=== PATIENT | female | born 1965 | race American Indian/Alaskan Native ===

== ENCOUNTER 2019-09-29 17:04 | Emergency (ER) | payer BC ==
--- NOTE | 2019-09-29 18:08 | Emergency Department Report ---
Blank Doc - Documentation Documentation: 53-year-old female that presents with tachycardia, fever, and cough with SOB. This initial assessment/diagnostic orders/clinical plan/treatment(s) is/are subject to change based on patient's health status, clinical progression and re- assessment by fellow clinical providers in the ED. Further treatment and workup at subsequent clinical providers discretion. Patient/guardians urged not to elope from the ED as their condition may be serious if not clinically assessed and managed. Initial orders include: 1- Patient sent to [facility] for further evaluation and treatment 2- CXR
--- NOTE | 2019-09-29 18:32 | XRay Report ---
CHEST PA AND LATERAL VIEWS INDICATION: cough. COMPARISON: None FINDINGS: Support devices: None Heart: Normal Lungs/Pleura: Minimal bibasilar parenchymal disease, probably atelectasis. No convincing evidence of acute disease. No pleural fluid. IMPRESSION: 1. No acute abnormality. Signer Name: Jeison Quiñonez MD Signed: 09/29/2019 6:28 PM Workstation Name: [id number]
[2019-09-29 20:54] VITALS: BP 140/77
[2019-09-29] MEDS ORDERED: ACETAMINOPHEN 500 MG TAB ONE (20:56)
[2019-09-29] MEDS ORDERED: ACETAMINOPHEN 500 MG TAB PO ONE (20:56)
--- NOTE | 2019-09-29 21:01 | Emergency Department Report ---
- General Chief Complaint: Upper Respiratory Infection Stated Complaint: SOB Time Seen by Provider: 09/29/19 18:07 Source: patient Mode of arrival: Ambulatory Limitations: No Limitations - History of Present Illness Initial Comments: 33-year-old female resents emergency department planing a few day history of nasal congestion and rhinitis with associated cough and shortness of breath but no fever, hemoptysis no hematemesis no hematochezia no palpitations no chest pain no lower extremity swelling but thinks he may have had a few wheezes here there. MD Complaint: cough, rhinorrhea, nasal congestion -: days(s) (2) Associated Symptoms: rhinorrhea. denies: abdominal pain, nausea, vomiting, right sweats, weight loss, hoarseness - Related Data Previous Rx's Medication Instructions Recorded Last Taken Type Albuterol INH(or & Nicu Only) 1 puff IH QID PRN #8.5 gram 09/29/19 Unknown Rx [ProAir HFA Inhaler] Benzonatate [Tessalon Perles] 100 mg PO Q8HR #20 capsule 09/29/19 Unknown Rx Fluticasone [Flonase] 1 spray NS QDAY #1 bottle 09/29/19 Unknown Rx Allergies Allergy/AdvReac Type Severity Reaction Status Date / Time No Known Allergies Allergy Unverified 09/29/19 17:07 ED Review of Systems ROS: Stated complaint: SOB Other details as noted in HPI Comment: All other systems reviewed and negative ED Past Medical Hx - Past Medical History Previous Medical History?: Yes Hx Hypertension: Yes - Surgical History Past Surgical History?: No - Social History Smoking Status: Never Smoker - Medications Home Medications: Home Medications Medication Instructions Recorded Confirmed Last Taken Type Albuterol INH(or & Nicu Only) 1 puff IH QID PRN #8.5 gram 09/29/19 Unknown Rx [ProAir HFA Inhaler] Benzonatate [Tessalon Perles] 100 mg PO Q8HR #20 capsule 09/29/19 Unknown Rx Fluticasone [Flonase] 1 spray NS QDAY #1 bottle 09/29/19 Unknown Rx ED Physical Exam - General Limitations: No Limitations General appearance: alert, in no apparent distress - Head Head exam: Present: atraumatic, normocephalic - Eye Eye exam: Present: normal appearance - ENT ENT exam: Present: normal exam, normal orophraynx, mucous membranes moist, TM's normal bilaterally - Neck Neck exam: Present: normal inspection, full ROM - Respiratory Respiratory exam: Present: normal lung sounds bilaterally. Absent: respiratory distress, wheezes, rales - Cardiovascular Cardiovascular Exam: Present: regular rate, normal rhythm. Absent: systolic murmur, diastolic murmur, rubs, gallop - GI/Abdominal GI/Abdominal exam: Present: soft, normal bowel sounds - Extremities Exam Extremities exam: Present: normal inspection - Back Exam Back exam: Present: normal inspection - Neurological Exam Neurological exam: Present: alert, oriented X3 - Psychiatric Psychiatric exam: Present: normal affect, normal mood - Skin Skin exam: Present: warm, dry, intact, normal color. Absent: rash ED Course Vital Signs 09/29/19 09/29/19 17:11 20:53 Temperature 99.6 F 100.2 F H Pulse Rate 114 H 99 H Respiratory 16 17 Rate Blood Pressure 114/71 Blood Pressure 140/77 [Left] O2 Sat by Pulse 97 97 Oximetry ED Medical Decision Making - Radiology Data Radiology results: report reviewed Chest x-ray normal - Medical Decision Making This 53 patient presents with symptoms suspicious for likely viral upper respiratory tract infection. Differential includes bacterial pneumonia, sinusitis, allergic rhinitis, asthma, viral syndrome. Do not suspect underlying Cardiopulmonary process. I considered but think unlikely dangerous cause of this patient symptoms to include acute coronary syndrome, CHF or COPD exacerbations, pneumonia, pneumothorax. Patient is nontoxic appearing and not in need of emergent medical intervention. Plan: Reassurance, reassessment, [id number] medications, discharge with PCP follow-up Critical care attestation.: If time is entered above; I have spent that time in minutes in the direct care of this critically ill patient, excluding procedure time. ED Disposition Clinical Impression: URI (upper respiratory infection), Cough Disposition: [id number] TO HOME OR SELFCARE Is pt being admited?: No Does the pt Need Aspirin: No Condition: Stable Instructions: Upper Respiratory Infection (ED) Prescriptions: Fluticasone [Flonase] 1 spray NS QDAY #1 bottle Albuterol INH(or & Nicu Only) [ProAir HFA Inhaler] 1 puff IH QID PRN #8.5 gram PRN Reason: Wheezing Benzonatate [Tessalon Perles] 100 mg PO Q8HR #20 capsule Referrals: PEDRO LICONA MD [Staff Physician] - 3-5 Days
[2019-09-29] MEDS ORDERED: IBUPROFEN 600 MG TAB PO ONE ×2 (21:34→21:35)
== END 2019-09-29 21:38 | disposition home or self-care (01) ==
LOC: ED 17:04
DX: J06.9 Acute upper respiratory infection, unspecified (principal); I10 Essential (primary) hypertension
CPT/HCPCS: 71046